=== PATIENT | male | born 2000 | race Caucasian/White ===

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

== ENCOUNTER 2019-02-09 22:27 | Emergency (ER) | payer OTHER, MEDICAID | END 2019-02-10 02:31 | disposition home or self-care (01) | LOC: FTE 22:27 | DX: J02.9 Acute pharyngitis, unspecified (principal); J45.909 Unspecified asthma, uncomplicated | CPT/HCPCS: 99283; Z7502 ==

== ENCOUNTER 2019-05-07 18:26 | Emergency (ER) | payer OTHER ==
[2019-05-07] MEDS: IBUPROFEN 800 MG TAB PO (18:53)
== END 2019-05-07 20:49 | disposition home or self-care (01) ==
LOC: FTE 18:26
DX: S93.402A Sprain of unspecified ligament of left ankle, initial encounter (principal); J45.909 Unspecified asthma, uncomplicated; X50.1XXA Overexertion from prolonged static or awkward postures, initial encounter; Y92.832 Beach as the place of occurrence of the external cause
CPT/HCPCS: 29515; 73610; 73630-LT; 99283-25